=== PATIENT | female | born 1990 | race American Indian/Alaskan Native ===

== ENCOUNTER 2020-10-04 01:39 | Emergency (ER) | payer SELFPAY ==
[2020-10-04 02:20] VITALS: BP 116/80
--- NOTE | 2020-10-04 02:24 | Emergency Department Report ---
ED General Adult HPI - General Stated complaint: ITCHY VAGINAL DISCHARGE/WITH ODOR Time Seen by Provider: 10/04/20 02:20 Source: patient Limitations: No Limitations - History of Present Illness Initial comments: Patient 30-year-old -[place] female who presents for vaginal discharge white malodorous musty smell x1 week. Patient states screening for STI last week and was negative. However symptoms have continued there is no fever, chills, nausea vomiting, back pain. Patient states she did not get treated for BV , daughter wanted to wait and see since STD work-up was negative. - Related Data Previous Rx's Medication Instructions Recorded Last Taken Type metroNIDAZOLE [Flagyl] 500 mg PO BID 7 Days #14 tab 10/04/20 Unknown Rx ED Review of Systems ROS: Stated complaint: ITCHY VAGINAL DISCHARGE/WITH ODOR Other details as noted in HPI Constitutional: denies: chills, fever Eyes: denies: eye pain, eye discharge, vision change ENT: denies: ear pain, throat pain Respiratory: denies: cough, shortness of breath, wheezing Cardiovascular: denies: chest pain, palpitations Endocrine: no symptoms reported Gastrointestinal: denies: abdominal pain, nausea, vomiting, diarrhea Genitourinary: discharge, abnormal menses. denies: urgency, dysuria, frequency, hematuria Musculoskeletal: denies: back pain, joint swelling, arthralgia Skin: denies: rash, lesions Neurological: denies: headache, weakness, paresthesias Psychiatric: denies: anxiety, depression Hematological/Lymphatic: as per HPI ED Past Medical Hx - Medications Home Medications: Home Medications Medication Instructions Recorded Confirmed Last Taken Type metroNIDAZOLE [Flagyl] 500 mg PO BID 7 Days #14 tab 10/04/20 Unknown Rx ED Physical Exam - General General appearance: alert, in no apparent distress - Head Head exam: Present: atraumatic, normocephalic - Eye Eye exam: Present: normal appearance - ENT ENT exam: Present: mucous membranes moist - Neck Neck exam: Present: normal inspection - Respiratory Respiratory exam: Present: normal lung sounds bilaterally. Absent: respiratory distress - Cardiovascular Cardiovascular Exam: Present: regular rate, normal rhythm, normal heart sounds. Absent: systolic murmur, diastolic murmur, rubs, gallop - GI/Abdominal GI/Abdominal exam: Present: soft, normal bowel sounds. 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 Absent: tenderness - Back Exam Back exam: Present: normal inspection, full ROM. Absent: tenderness, CVA tenderness (R), CVA tenderness (L) - Neurological Exam Neurological exam: Present: alert, oriented X3, CN II-XII intact, normal gait - Psychiatric Psychiatric exam: Present: normal affect, normal mood - Skin Skin exam: Present: warm, dry, intact, normal color. Absent: rash ED Course Vital Signs 10/04/20 02:18 Temperature 98.0 F Pulse Rate 76 Respiratory 16 Rate Blood Pressure 116/80 O2 Sat by Pulse 100 Oximetry ED Medical Decision Making - Medical Decision Making Recent UA, wet prep, STI screening negative. However itching, white thick dischar presents suspecting it was worsening her that then they were lettingge fishy malodor symptoms are consistent with BV. Plan DC with prescription for Flagyl, follow-up with GEOSPATIAL TECHNOLOGIST as scheduled in 2 days. Patient verbalizes agreement and understanding with discharge plan. Patient will be DC'd home in stable condition at this time. Critical care attestation.: If time is entered above; I have spent that time in minutes in the direct care of this critically ill patient, excluding procedure time. ED Disposition Clinical Impression: Vaginitis Qualifiers: Chronicity: acute Qualified Code(s): N76.0 - Acute vaginitis Disposition: DC-01 TO HOME OR SELFCARE Is pt being admited?: No Does the pt Need Aspirin: No Condition: Stable Instructions: Vaginitis Prescriptions: metroNIDAZOLE [Flagyl] 500 mg PO BID 7 Days #14 tab Referrals: PRIMARY CARE, [Primary Care Provider] - 3-5 Days Forms: Work/School Release Form(ED) Time of Disposition: 02:26
== END 2020-10-04 02:29 | disposition home or self-care (01) ==
LOC: ED 01:39
DX: N76.0 Acute vaginitis (principal); Z79.899 Other long term (current) drug therapy
CPT/HCPCS: 99282